=== PATIENT | male | born 1935 | race African-American/Black ===

== ENCOUNTER 2016-07-04 03:17 | Inpatient (IN) | payer OTHER ==
--- NOTE | ~2016-07-04 | A ---
[facility] Nutrition Therapy DATE: 07/04/16 Patient: PARMINDER MODI Physician: [place] Address: [address] [place] [address] Room/Bed: [address] [place] [address], Zip: [place] [address] Admit Date: 07/04/16 Date of : 35 Height: 5 7 Weight: 174 79.37 NUTRITIONAL ASSESSMENT: REASON: CONSULT RE: DM EDUCATION PT IS 81 Y.O. MALE ADMITTED FOR HYPOGLYCEMIA, CASEY HT: 5'7", WT: 175# (80 KG), BMI: 27.4 RD ATTEMPTED TO PROVIDE VERBAL AND WRITTEN CC DIET EDUCATION. PT ASLEEP AT TIME OF VISIT-PT DID NOT WAKE TO VERBAL CUES. RD LEFT WRITTEN CC DIET EDUCATION AT BEDSIDE. RD TO REMAIN AVAILABLE. RD WILL F/U PER PROTOCOL Respectfully, JOSHUA HOLLIDAY MS, RD, LD Food and Nutritional Services [facility] cc: client file
--- NOTE | ~2016-07-04 | DS ---
Unit #: [id number] #: [id number] Patient: PARMINDER MODI [id number] [address] [place], [place] [address] [id number] I MR#: [id number] NAME: PARMINDER MODI ROOM: 55 Age: 81 Sex: M Admission Date: 07/04/2016 : 1935 Discharge Date: 07/05/2016 Attending Physician: Issac Hidalgo M.D. Primary Care Physician: No Primary Care Physician DISCHARGE SUMMARY PRIMARY DIAGNOSIS Hypoglycemia. SECONDARY DIAGNOSES 1. Dehydration with hypernatremia. 2. Urinary tract infection. 3. Acute kidney injury. 4. Severe dementia. 5. History of stroke. 6. 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 7. Glaucoma. 8. Hypertension. HOSPITAL COURSE The patient was admitted to the hospital and started on D5 water with good improvement in his issues. His creatinine came down from 1.6 down to 1.3, which is his baseline. His sodium level came down from 150 to 133. His blood sugars were running in the 200s for over 12 hours prior to discharge. His urine culture is still pending, but based on previous urine cultures and his improved creatinine, he would likely respond to 7 days of nitrofurantoin. I will place him on this and have him follow up with [facility] in 1 week. The primary issue with the patient appears to be that he became excessively dehydrated. The reports that, due to his polyuria, she may have limited his fluids, and I counselled her on aggressive hydration daily with her . He is incontinent of urine, so has frequent diaper changes, which is somewhat difficult on the family. Overall, his hemoglobin A1C is 8.8%, and obviously, holding back on his insulin and (1) his diabetes, would only make him more likely to get dehydrated, so I think pulling back on his insulin is not the recommended therapy at this time. Per his , he has never had issues with hypoglycemia previously, and it appears in this case that the main reason that he developed hypoglycemia was due to worsening kidney function with dehydration with his home doses of insulin. Additionally, he is on a somewhat unusual insulin regimen at home. He is on 75/25 insulin, which he takes 3 times a day with meals. Ultimately, I will leave it up to [facility] to discuss possible changes in the type and frequency of his insulin regimen. Consideration could be made for changing his 75/25 to twice a day or possibly going to a 3-udtq-r-day regimen with Lantus and NovoLog aspart. If the family were careful while doing such a regimen, it would probably lead to a lower risk of hypoglycemia, as well as a better control of his insulin, but it is unclear whether that would be able to occur. Unit #: [id number] #: [id number] Patient: PARMINDER MODI Ultimately, due to the patient's severe dementia, his quality of life is poor, and his life expectancy is quite limited regardless. DISCHARGE DISPOSITION To home. DISCHARGE STATUS Stable. DISCHARGE ACTIVITY With assistance only. DISCHARGE DIET Diabetic dysphagia diet with thickened liquids, which was his previous home diet. DISCHARGE FOLLOW-UP With [facility] in 1 week. SPECIAL INSTRUCTIONS The patient is to get 4-5 glasses of fluid per day minimum. DISCHARGE MEDICATIONS 1. Humalog 75/25 - 35 units with breakfast, 30 units with lunch and 30 units with supper. 2. Flomax 0.4 mg daily. 3. Aricept 10 mg p.o. daily. 4. Zoloft 50 mg p.o. daily. 5. Losartan 100 mg p.o. daily. 6. Norvasc 10 mg p.o. daily. 7. Aspirin 81 mg p.o. daily. 8. Timolol eyedrops 1 drop both eyes b.i.d. 9. Prednisolone eyedrops 1 drop both eyes b.i.d. 10. Potassium chloride 20 mEq p.o. b.i.d. Dictated by... Adriel Tierney M.D. CANELO/gerald TD: 07/07/2016 07:39 JOB #: [id number] DISCHARGE SUMMARY X Adriel Tierney MD X DISCHARGE SUMMARY
--- NOTE | ~2016-07-04 | HP ---
Unit #: [id number] #: [id number] Patient: PARMINDER MODI [id number] [address] [address] [id number] I MR#: [id number] NAME: PARMINDER MODI ROOM: 55 Age: 81 Sex: M Admission Date: 07/04/2016 : 1935 Attending Physician: Lindsay Alfaro M.D. Primary Care Physician: No Primary Care Physician HISTORY AND PHYSICAL CHIEF COMPLAINT Hypoglycemia, acute kidney injury with hypernatremia. HISTORY This pleasant 81-year-old male with dementia, IDDM, glaucoma, is admitted for hypoglycemia. Patient takes unknown amount of Humalog mix 75/25. I believe his sugar was high yesterday and his administered insulin. He became increasingly lethargic and unarousable late last evening. EMS was called and the patient's Accu-Chek was found to be 22. He was brought to this emergency department where he was given an amp of D50. His Accu-Chek improved. However, afterwards his Accu-Chek was 66. He was given another half amp of D50 and currently is receiving D5W at 125 mL an hour. PAST MEDICAL HISTORY 1. Prior CVA with right-sided weakness, memory issues, expressive aphasia, and dysphagia. 2. Glaucoma. 3. Admission 04/2016 for ESBL UTI and sepsis. 4. Blind left eye. 5. Dementia. 6. Essential hypertension. 7. BPH. 8. Remote DVT 1999 during the time the patient had a CVA. Family believes he underwent an IVC filter. ALLERGIES No known drug allergies. HOME MEDICATIONS 1. Humalog 75/25 mix, possibly versus Lantus. I am unsure at this time. 2. Flomax 0.4 mg daily. 3. Aricept 10 mg daily. 4. Zoloft 50 mg daily. 5. Losartan 100 mg daily. 6. Norvasc 10 mg daily. 7. Aspirin 81 mg daily. 8. Timolol 1 drop OU b.i.d. 9. Prednisolone 1 drop OU b.i.d. FAMILY HISTORY Noncontributory given patient's age. Unit #: [id number] #: [id number] Patient: PARMINDER MODI SOCIAL HISTORY The patient lives with his . He is essentially a lifelong nonsmoker and does not drink alcohol. REVIEW OF SYSTEMS Impossible to obtain due to confusion. PHYSICAL EXAMINATION GENERAL: Pleasantly confused 81-year-old male currently in no acute distress. VITAL SIGNS: Temperature 95.5, pulse 66, respirations 16, blood pressure 138/78, O2 saturation is 96% on room air. HEENT: Notable for clouding of the left cornea. Pharynx is benign. NECK: Supple without adenopathy or thyromegaly. CHEST: Clear on patient's supine exam. CARDIAC: Normal S1 and S2 without murmur. ABDOMEN: Bowel sounds are present. No hepatosplenomegaly, tenderness or masses. EXTREMITIES: Without edema. Pedal pulses are diminished. No ulcers on the feet. NEUROLOGIC: Patient is somnolent but easily arousable. He is blind in left eye. He has a slight right lower facial droop. He is oriented only to person. He is week on the right side as compared to the left. DIAGNOSTIC STUDIES ADMISSION LABS: Hematocrit is 35.2, which is stable. Normal white count and platelet count and MCV. SMA 12 - glucose 27, BUN 25, creatinine 1.6, up from a BUN of 30, creatinine 1.4 05/16/2016, sodium 150, potassium 3.3, chloride 118, lactic acid normal. Cardiac markers are negative. Urinalysis - positive leukocyte esterase, 2+ protein with 5-10 red cells, 10-25 white cells, no bacteria noted. IMAGING STUDIES: Chest x-ray - cardiomegaly. Head CT - stable, no acute disease. CARDIOLOGY STUDIES: EKG - sinus bradycardia rate 46, nonspecific ST wave abnormalities noted. ASSESSMENT 1. IDDM with hypoglycemia. 2. Acute and chronic kidney disease, probably related to dehydration with hypernatremia. 3. Questionable UTI. Patient was recently admitted for ESBL sepsis. 4. 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 5. Prior CVA with dysphagia, right-sided weakness and dementia. 6. Hypertension. 7. Glaucoma. Patient is blind left eye. PLANS 1. Hypotonic IV fluids with D5W. 2. Frequent Accu-Cheks, obtain hemoglobin A1c, and hold insulin. 3. Meropenem and Florastor pending urine cultures. 4. If urine cultures are negative would discontinue antibiotics. 5. DVT prophylaxis. Unit #: [id number] #: [id number] Patient: PARMINDER MOID Dictated by Lindsay Alfaro M.D. AML/ts TD: 07/04/2016 06:49 JOB #: [id number] CC: Elias Solorzano HISTORY AND PHYSICAL X Lindsay Alfaro MD HISTORY AND PHYSICAL
--- NOTE | ~2016-07-04 | CR72 ---
[facility] A Service of [facility] & [facility] RADIOLOGY TEXT RESULTS PATIENT: PARMINDER OMDI LOCATION: [facility] 55- : 35 UNIT #: [id number] AGE: [address]: Issac Hidalgo MD SEX: M ORDER DR: [id number] [facility] [address] [place], [place] [address] [id number] I MR#: [id number] Acc #: [id number] NAME: PARMINDER MODI : 1935 SEX: M STUDY DATE/TIME: 07/04/2016 0300 UNIT: [facility] ROOM: [facility] STUDY DESCRIPTION: CR Chest Single View Portable Attending Physician: Issac Hidalgo M.D. Ordering Physician: Sully Thao M.D. Primary Care Physician: No Primary Care Physician MEDICAL IMAGING REPORT This report is preliminary unless electronic signature is present EXAM Portable chest, 07/04 at 0300 INDICATION Patient brought in by EMS today with hypoglycemia. History of hypertension. FINDINGS AP portable chest compared with 05/11/2016. Heart is enlarged. Lung volumes are low, but the lungs are clear. No pneumothorax. IMPRESSION Cardiomegaly with low-volume inspiration. No acute findings in the chest. Dictated by... Joaquin Guzman Jr., M.D. THIS IS AN ELECTRONICALLY VERIFIED REPORT Joaquin Guzman Jr., M.D. at 07/04/2016 12:40 PM KAMARI/katya TD: 07/04/2016 09:49 JOB #: [id number] MEDICAL IMAGING REPORT COPY
--- NOTE | ~2016-07-04 | EKG ---
PATIENT: PARMINDER MODI UNIT #: [id number] Ventricular Rate: 46 BPM Atrial Rate: 46 BPM P-R Interval: 182 ms QRS Duration: 90 ms Q-T Interval: 564 ms QTC Calculation(Bezet): 493 ms P [place]: 52 degrees Calculated T [place]: -54 degrees Diagnosis Line: Sinus bradycardia Diagnosis Line: T wave abnormality, consider anterior ischemia Diagnosis Line: Prolonged QT Diagnosis Line: Abnormal ECG Diagnosis Line: No previous ECGs available Diagnosis Line: Confirmed by VALE MCARTHUR MD ([id number]) on Diagnosis Line: 07/06/2016 11:56:40 PM INTERPRETING MD: LYUBOV PAULION
--- NOTE | ~2016-07-04 | CT71 ---
[facility] A Service of [facility] & [facility] RADIOLOGY TEXT RESULTS PATIENT: PARMINDER MODI LOCATION: [facility] 55- : 35 UNIT #: [id number] AGE: [address]: Issac Hidalgo MD SEX: M ORDER DR: [id number] [facility] [address] [place], [place] [address] [id number] I MR#: [id number] Acc #: [id number] NAME: PARMINDER MODI : 1935 SEX: M STUDY DATE/TIME: 07/04/2016 04:14 UNIT: [facility] ROOM: [facility] STUDY DESCRIPTION: CT Head Wo Contrast Attending Physician: Issac Hidalgo M.D. Ordering Physician: Sully Thao M.D. Primary Care Physician: Primary Care Physician No MEDICAL IMAGING REPORT This report is preliminary unless electronic signature is present EXAM Head CT 07/04 at 04:14 INDICATIONS Confusion for 1 day. Mental status changes and hypoglycemia. This CT exam was performed with one or more of the following radiation dose reduction techniques: automatic exposure control, adjustment of mA and/or kV according to patient size, and iterative reconstruction. FINDINGS Axial images were obtained from base to the vertex without contrast. Comparison is made with 05/11/2016. Again seen is generalized atrophy. Ventricular size and configuration are stable. There is ex vacuo dilatation of the left lateral ventricle due to an old left MCA infarct. Advanced chronic small vessel ischemic changes are present in the white matter. Atherosclerotic calcifications are present in the left vertebral artery in both carotid siphons. There are postoperative changes in the right globe. No acute infarct or hemorrhage is seen. There are no masses. No skull fracture. IMPRESSION No acute abnormalities. Stable exam from 05/11/2016. Dictated by... Joaquin Guzman Jr., M.D. THIS IS AN ELECTRONICALLY VERIFIED REPORT Joaquin Guzman Jr., M.D. at 07/04/2016 12:40 PM KAMARI/matthew TD: 07/04/2016 09:54 [facility] A Service of [facility] & [facility] RADIOLOGY TEXT RESULTS PATIENT: PARMINDER MODI LOCATION: [place] [address]01 : 35 UNIT #: [id number] AGE: [address]: Issac Hidalgo MD SEX: M ORDER DR: JOB #: [id number] MEDICAL IMAGING REPORT COPY
[2016-07-04 03:07] LABS: BASOPHIL# 0.1 X10e3 (0-0.3); BASOPHIL% 1.3 % (0-2.5); EOSINOPHIL# 0.2 X10e3 (0-0.7); EOSINOPHIL% 2.1 % (0.0-7.0); HEMATOCRIT 35.2 % (38.0-50.0); HEMOGLOBIN 11.3 gm/dL (13.0-16.0); LYMPHOCYTE% 23.9 % (17.0-45.0); MEAN CELL VOLUME 83.2 FL (83-96); MEAN CORPUSCULAR HEMOGLOBIN 26.8 PG (28-34); MEAN CORPUSCULAR HGB CONC 32.2 g/dL (30-36); MEAN PLATELET VOLUME 7.7 FL (6.5-11.5); MONOCYTE# 0.5 X10e3 (0-1.0); NEUTROPHIL# 5.5 X10e3 (1.5-7.1); NEUTROPHIL% 66.7 % (40-75); PLATELET COUNT 282 X10e3 (140-420); RED BLOOD COUNT 4.24 X10e (3.90-5.60); RED CELL DISTRIBUTION WIDTH 15.9 % (11.0-15.5); WHITE BLOOD COUNT 8.3 X10e3 (4.0-10.5)
[2016-07-04 03:09] LABS: DIFF IND NO
[~2016-07-04 03:17] MED LIST: ARICEPT PO; ASPIRIN EC81 M1 PO; COUMADIN; COUMADIN5 MG PO; COZAAR100 MG PO; DONEPEZIL HCL10 MG PO; FLOMAX0.4 M1 PO; HUMULIN 70/30 V10 ML; LANTUS100 U/ML SUBQ; LISINOPRIL; LISINOPRIL10 MG PO; LOPID600 MG PO; METFORMIN; METFORMIN HCL500 M1 PO; NORVASC; NORVASC10 MG PO; NOVOLIN R100 U/ML; SERTRALINE HCL50 M1 PO; TRAVATAN5 ML; TRAVATAN5 ML OU; TRUSOPT5 ML; TRUSOPT5 ML OU; VASOCIDIN O5 ML OPTH OU
[2016-07-04 03:23] LABS: POC - CKMB 1.2 ng/mL (0.0-7.9); POC - TROPONIN <0.05 ng/mL (<=0.05)
[2016-07-04 03:24] LABS: URINE SOURCE CLEAN CATCH
[2016-07-04 03:29] LABS: URINE APPEARANCE CLEAR; URINE BILIRUBIN NEG (NEG); URINE BLOOD TRACE (NEG); URINE COLOR YELLOW; URINE GLUCOSE NEG (NEG); URINE KETONE NEG (NEG); URINE LEUKOCYTE ESTERASE 1+ (NEG); URINE NITRATE NEG (NEG); URINE PROTEIN 2+ (NEG); URINE SPECIFIC GRAVITY 1.016 (1.003-1.035)
[2016-07-04 03:32] LABS: CULTURE INDICATED? YES; URINE BACTERIA AUWI NEG (NEGATIVE); URINE SQUAMOUS EPITHELIAL CELL OCC /[HPF]
[2016-07-04 03:37] LABS: ALBUMIN SERUM 3.8 g/dL (3.5-5.0); BILIRUBIN, DIRECT 0.1 mg/dL (0.0-0.2); BILIRUBIN,INDIRECT 0.3 mg/dL (0.0-0.9); BILIRUBIN,TOTAL 0.4 mg/dL (0.2-2.0); BUN/CREATININE RATIO 15.62; CALCIUM SERUM 8.9 mg/dL (8.4-10.2); CREATININE SERUM 1.6 mg/dL (0.6-1.4); GLOM FILT RATE Estimated 53.6 mL/min (>60); POTASSIUM 3.3 mmol/L (3.5-5.1)
[2016-07-04 05:07] LABS: POC - CKMB 1.4 ng/mL (0.0-7.9); POC - TROPONIN <0.05 ng/mL (<=0.05)
[2016-07-04 12:23] LABS: BASOPHIL% 0.3 % (0-2.5); EOSINOPHIL# 0.1 X10e3 (0-0.7); EOSINOPHIL% 1.2 % (0.0-7.0); HEMATOCRIT 35.2 % (38.0-50.0); HEMOGLOBIN 11.3 gm/dL (13.0-16.0); LYMPHOCYTE# 2.2 X10e3 (1.0-3.5); LYMPHOCYTE% 24.8 % (17.0-45.0); MEAN CELL VOLUME 82.9 FL (83-96); MEAN CORPUSCULAR HEMOGLOBIN 26.7 PG (28-34); MEAN CORPUSCULAR HGB CONC 32.2 g/dL (30-36); MEAN PLATELET VOLUME 7.5 FL (6.5-11.5); MONOCYTE# 0.5 X10e3 (0-1.0); NEUTROPHIL# 5.9 X10e3 (1.5-7.1); NEUTROPHIL% 67.7 % (40-75); PLATELET COUNT 301 X10e3 (140-420); RED BLOOD COUNT 4.25 X10e (3.90-5.60); RED CELL DISTRIBUTION WIDTH 16.7 % (11.0-15.5); WHITE BLOOD COUNT 8.7 X10e3 (4.0-10.5)
[2016-07-04 12:29] LABS: DIFF IND YES
[2016-07-04 12:51] LABS: BLOOD UREA NITROGEN 20 mg/dL (9-23); BUN/CREATININE RATIO 14.28; CALCIUM SERUM 8.7 mg/dL (8.4-10.2); CARBON DIOXIDE 24 mmol/L (22-31); CHLORIDE 111 mmol/L (100-111); CREATININE SERUM 1.4 mg/dL (0.6-1.4); GLOM FILT RATE Estimated ABOVE60 mL/min (>60); GLUCOSE FASTING 205 mg/dL (70-110); POTASSIUM 3.5 mmol/L (3.5-5.1); SODIUM 143 mmol/L (135-145)
[2016-07-04 13:09] LABS: PLATELET ESTIMATE NORMAL (NORMAL)
[2016-07-04 13:10] LABS: ANISOCYTOSIS SL
[2016-07-04 13:17] LABS: %MB 3.2 % (0.0-4.0)
[2016-07-05 05:14] LABS: HEMOGLOBIN 11.3 gm/dL (13.0-16.0); MEAN CELL VOLUME 82.7 FL (83-96); MEAN CORPUSCULAR HEMOGLOBIN 26.7 PG (28-34); MEAN CORPUSCULAR HGB CONC 32.3 g/dL (30-36); MEAN PLATELET VOLUME 8.1 FL (6.5-11.5); RED BLOOD COUNT 4.24 X10e (3.90-5.60); RED CELL DISTRIBUTION WIDTH 16.1 % (11.0-15.5); WHITE BLOOD COUNT 8.7 X10e3 (4.0-10.5)
[2016-07-05 08:49] LABS: BLOOD UREA NITROGEN 12 mg/dL (9-23); BUN/CREATININE RATIO 9.23; CARBON DIOXIDE 25 mmol/L (22-31); CHLORIDE 101 mmol/L (100-111); CREATININE SERUM 1.3 mg/dL (0.6-1.4); GLOM FILT RATE Estimated ABOVE60 mL/min (>60); GLUCOSE FASTING 261 mg/dL (70-110); SODIUM 133 mmol/L (135-145)
[2016-07-05] MEDS ORDERED: PREDNISOLONE SO10 ML OU (10:19)
[2016-07-05] MEDS ORDERED: MACROBID100 MG PO (10:20)
[2016-07-05] MEDS ORDERED: KCL PO (10:21)
== END 2016-07-05 12:06 | disposition home or self-care (01) | DRG 638 ==
LOC: CED 03:17 → CEDOF 05:40 → C5B 06:24
PROVIDERS: Emergency Medicine; Internal Medicine
DX: E11.649 Type 2 diabetes mellitus with hypoglycemia without coma (principal); N39.0 Urinary tract infection, site not specified; N17.9 Acute kidney failure, unspecified; E87.0 Hyperosmolality and hypernatremia; I69.351 Hemiplegia and hemiparesis following cerebral infarction affecting right dominant side; E86.0 Dehydration; F03.90 Unspecified dementia, unspecified severity, without behavioral disturbance, psychotic disturbance, mood disturbance, and anxiety; I69.320 Aphasia following cerebral infarction; I69.391 Dysphagia following cerebral infarction; R13.10 Dysphagia, unspecified; H40.9 Unspecified glaucoma; H54.42 Blindness, left eye, normal vision right eye; Z86.718 Personal history of other venous thrombosis and embolism; Z79.01 Long term (current) use of anticoagulants; Z79.4 Long term (current) use of insulin
CPT/HCPCS: 36415; 70450; 71010; 80048; 80076; 81003; 82550; 82553; 82947; 83036; 83605; 83735; 84484; 85025; 85027; 87086; 93005; 96365; 96375; 96376; 99285; J0696; J1650; J1815; J2185

== ENCOUNTER 2016-08-02 20:35 | Inpatient (IN) | payer OTHER ==
--- NOTE | ~2016-08-02 | CT71 ---
[facility] A Service of [facility] RADIOLOGY TEXT RESULTS PATIENT: PARMINDER MODI LOCATION: [facility] 342-01 : 35 UNIT #: [id number] AGE: [address]: Rodrick Phillips MD SEX: M ORDER DR: [id number] [facility] [address] [place], [place] [address] [id number] I MR#: [id number] Acc #: [id number] NAME: PARMINDER MODI : 1935 SEX: M STUDY DATE/TIME: 08/02/2016 20:28 UNIT: [facility] ROOM: [address]35[address] STUDY DESCRIPTION: CT Head Wo Contrast Attending Physician: Katie Cotter M.D. Ordering Physician: Son Lemos M.D. Primary Care Physician: No Primary Care Physician MEDICAL IMAGING REPORT This report is preliminary unless electronic signature is present EXAM Head CT without contrast. DATE OF EXAM 08/02/2016 HISTORY Low blood sugar and altered mental status today. Patient found unresponsive 2 hours ago. No known trauma to head, hypertension, diabetes. TECHNIQUE NOTE: This CT exam was performed with one or more of the following radiation dose reduction techniques: automatic exposure control, adjustment of mA and/or kV according to patient size, and iterative reconstruction. FINDINGS Multiple axial images were obtained from the skull base to vertex without intravenous contrast administration. There is generalized enlargement of the ventricles and sulci characteristic of atrophy and there is periventricular microvascular white matter ischemic change. Old left middle cerebral artery infarct is noted with ex vacuo dilatation of the left frontal horn unchanged compared with 07/04/2016. There is no midline shift. There is no mass or mass effect, hemorrhage or acute infarct. IMPRESSION Atrophy and chronic ischemic change. Old infarct left middle cerebral artery distribution. No acute intracranial abnormality. Dictated by... Ashish Lehman M.D. [facility] A Service of [facility] RADIOLOGY TEXT RESULTS PATIENT: PARMINDER MODI LOCATION: [facility] 342-01 : 35 UNIT #: [id number] AGE: [address]: Rodrick Phillips MD SEX: M ORDER DR: THIS IS AN ELECTRONICALLY VERIFIED REPORT Ashish Lehman M.D. at 08/03/2016 1:14 PM TRINITY/david TD: 08/02/2016 23:37 JOB #: [id number] MEDICAL IMAGING REPORT Page 1 of 1 COPY
--- NOTE | ~2016-08-02 | CR72 ---
[facility] A Service of [facility] & [facility] RADIOLOGY TEXT RESULTS PATIENT: PARMINDER MODI LOCATION: [facility] 342-01 : 35 UNIT #: [id number] AGE: [address]: Rodrick Phillips MD SEX: M ORDER DR: [id number] [facility] [address] [place], [place] [address] [id number] I MR#: [id number] Acc #: [id number] NAME: PARMINDER MODI : 1935 SEX: M STUDY DATE/TIME: 08/02/2016 19:58 UNIT: [facility] ROOM: [address] STUDY DESCRIPTION: CR Chest Single View Portable Attending Physician: Katie Cotter M.D. Ordering Physician: Son Lemos M.D. Primary Care Physician: No Primary Care Physician MEDICAL IMAGING REPORT This report is preliminary unless electronic signature is present EXAM Portable chest 08/02/2016 HISTORY Congestive heart failure, shortness of breath bradycardia decreased breath sounds. Patient unresponsive tonight chest congestion and cough. Benign essential hypertension FINDINGS The cardiac and mediastinal structures are stable compared with 07/04/2016. There is poor inspiratory result with atelectasis at the right lung base and elevation of the right hemidiaphragm. Lungs are otherwise clear. There are no pleural effusions. IMPRESSION No active pulmonary disease Dictated by... Ashish Lehman M.D. THIS IS AN ELECTRONICALLY VERIFIED REPORT Ashish Lehman M.D. at 08/03/2016 1:14 PM KRT/nadiya TD: 08/02/2016 23:37 JOB #: [id number] MEDICAL IMAGING REPORT Page 1 of 1 COPY
--- NOTE | ~2016-08-02 | DS ---
Unit #: [id number] #: [id number] Patient: PARMINDER MODI [id number] [address] [address] [id number] I MR#: [id number] NAME: PARMINDER MODI ROOM: 342 Age: 81 Sex: M Admission Date: 08/02/2016 : 1935 Discharge Date: Attending Physician: Heidy Garber M.D. DISCHARGE SUMMARY DISCHARGE DIAGNOSES 1. Acute kidney injury. 2. Urinary tract infection, cultures negative. 3. Hypoglycemia. 4. Diabetes mellitus type 2, insulin dependent. 5. Toxic metabolic encephalopathy most likely from hypoglycemia. 6. History of cerebrovascular accident with right side weakness. 7. History of glaucoma with blindness in the left eye. 8. Hypertension, uncontrolled. 9. History of severe dementia, likely vascular. 10. Benign prostatic hypertrophy. 11. Dehydration. CONSULTATIONS None. PROCEDURES None. DIAGNOSTIC STUDIES LABORATORY: Glucose 270, sodium 140, potassium 4.4, and creatinine 1.4. WBC 9.3, hemoglobin 10.2, and platelets 230,000. Urine culture negative. ALLERGIES None. DISCHARGE MEDICATIONS 1. Flomax 0.4 p.o. daily. 2. Zoloft 50 daily. 3. Norvasc 10 daily. 4. Donepezil 10 mg p.o. daily. 5. Hydralazine 25 p.o. b.i.d. 6. Aspirin 81 daily. 7. NovoLog low-dose sliding scale. HOSPITAL COURSE An 81-year-old admitted because of change in mental status. Acute kidney injury, most likely prerenal and dehydration. Patient received IV fluids. Currently resolved. Urinary tract infection. Cultures are negative. Patient received Rocephin and completed the course. Unit #: [id number] #: [id number] Patient: PARMINDER MODI Toxic metabolic encephalopathy secondary to hypoglycemia. Currently, sugars are stable. He is back to baseline according to son. He will go to rehab and continue with supportive care there. Dehydration. Patient received IV fluids. Currently tolerating diet okay. Diabetes mellitus type 2 uncontrolled with hypoglycemia. His insulin has been discontinued. Continue with sliding scale for now. Hypertension, uncontrolled. Hydralazine added. DISPOSITION Discharge to rehab. Dictated by... Elias Butler TD: 08/07/2016 14:27 JOB #: [id number] DISCHARGE SUMMARY Page 1 of 1 X Heidy Garber MD X DISCHARGE SUMMARY
--- NOTE | ~2016-08-02 | EKG ---
PATIENT: PARMINDER MODI UNIT #: [id number] Ventricular Rate: 60 BPM Atrial Rate: 60 BPM P-R Interval: 160 ms QRS Duration: 90 ms Q-T Interval: 526 ms QTC Calculation(Bezet): 526 ms P [place]: 41 degrees Calculated R [place]: 9 degrees Calculated T [place]: 51 degrees Diagnosis Line: Normal sinus rhythm Diagnosis Line: Nonspecific T wave abnormality Diagnosis Line: Abnormal ECG Diagnosis Line: When compared with ECG of 04-JUL-2016 03:08, Diagnosis Line: Non-specific change in ST segment in Anterior Diagnosis Line: leads Diagnosis Line: T wave inversion no longer evident in Anterior Diagnosis Line: leads Diagnosis Line: Confirmed by SKYE GARCIA MD ([id number]) on 08/03/2016 Diagnosis Line: 4:39:58 PM INTERPRETING MD: RADHA PAULINO
--- NOTE | ~2016-08-02 | HP ---
Unit #: [id number] #: [id number] Patient: PARMINDER MODI [id number] [address] [place], [place] [address] [id number] MR#: [id number] NAME: PARMINDER MODI ROOM: 342 Age: 81 Sex: M Admission Date: 08/02/2016 : 1935 Attending Physician: Rodrick Phillips M.D. Primary Care Physician: No Primary Care Physician HISTORY AND PHYSICAL CHIEF COMPLAINT Change in mental status, hypoglycemia. HISTORY OF PRESENT ILLNESS This is an 81-year-old gentleman who has a past medical history of insulin dependent diabetes, glaucoma, legally blind left eye, history of CVA with right-sided hemiparesis, (1) , dysphagia, hypertension, dementia, benign prostatic hypertrophy. As per family he was at home. He became all of the sudden sweaty. He took 70/30 25 units of insulin and then became all of the sudden sweaty, clammy, sweating and then EMS was called. He was found to have low sugar. He was given D50 and brought to the emergency room. Here he was found to have again sugar less than 140 and was given another episode of D50 and eventually workup showed increased creatinine of 1.8 and he was admitted for hypoglycemia. He was also found to have a urinary tract infection on urinalysis. Otherwise he is stable at this time. He is alert and oriented times one. He denies any complaint. No chest pain. No nausea. No vomiting. No fever. No chills. PAST MEDICAL HISTORY 1. History of severe CVA with right-sided weakness. Memory issues. Aphagia and dysphagia. 2. History of glaucoma with blindness in the left eye. 3. History of vascular dementia. 4. Hypertension. 5. Benign prostatic hypertrophy. 6. History of remote DVT in 2007, probably had IVC filter at that time. 7. History of insulin dependent diabetes. SOCIAL HISTORY The patient lives with his . He does not smoke. Does not drink alcohol. FAMILY HISTORY Noncontributory given the patient's age. ALLERGIES No known drug allergies. HOME MEDICATIONS (From last discharge) 1. Humalog 75/35, 35 units with breakfast, 30 units with lunch, 30 units with supper. 2. Flomax 0.4 mg daily. 3. Aricept 10 mg daily. 4. Zoloft 50 mg daily. Unit #: [id number] #: [id number] Patient: PARMINDER MODI 5. Losartan 100 mg daily. 6. Norvasc 10 mg daily. 7. Aspirin 81 mg daily. 8. Timolol eyedrops b.i.d. 9. Prednisone eyedrops b.i.d. 10. Potassium chloride 20 mEq b.i.d. REVIEW OF SYSTEMS Negative except as per history of present illness. PHYSICAL EXAMINATION GENERAL: Elderly man lying in the bed comfortably. Currently not in any distress. He is alert, awake and oriented times one. VITALS: Currently, temperature 96.5, heart rate 69, respiratory rate 16, blood pressure 134/79. HEENT: Notable for clouding of the left cornea. Pharynx is benign. Head is atraumatic and normocephalic. NECK: Supple. No jugular venous distension. No thyromegaly. LUNGS: Clear to auscultation. No rhonchi. No wheezing. HEART: S1 and S2. Regular rate and rhythm. ABDOMEN: Soft, nontender and nondistended. Bowel sounds positive. EXTREMITIES: Inspection normal. No cyanosis, clubbing or edema. NEUROLOGIC: He is blind in the left eye. He has right-sided chronic weakness. Cranial nerves II through XII intact. DIAGNOSTIC STUDIES IMAGING: Chest x-ray negative. CT head shows old infarct left middle cerebral artery distribution. LABORATORY: Urinalysis, glucose 100, WBCS 25-50. Repeat glucose 95. Sodium 138, potassium 3.4, chloride 100, glucose 160, BUN 20, creatinine 1.8. LFTs within normal limits. Alcohol less than 5. Lactic acid 1.7. Ammonia level is 21. INR 1. CBC, white count 6, hemoglobin 11, hematocrit 35, platelets 192. ASSESSMENT/PLAN 1. Change in mental status secondary to hypoglycemia. 2. Hypoglycemia with insulin dependent diabetes. Will place on Accu-Cheks morning and evening. Hold insulin. 3. Urinary tract infection. Start the patient on IV Rocephin. 4. Acute kidney injury. IV fluids and reevaluate in the morning. 5. History of insulin dependent diabetes. 6. History of CVA with right-sided weakness. Has aphasia. 7. History of glaucoma with blindness left eye. 8. Hypertension. 9. History of dementia, likely vascular. 10. Benign prostatic hypertrophy. 11. DVT prophylaxis. Will place the patient on Lovenox. Dictated by Katie Cotter M.D. DONTRELL/leif TD: 08/03/2016 06:44 JOB #: [id number] Unit #: [id number] #: [id number] Patient: PARMINDER MODI HISTORY AND PHYSICAL Page 1 of 1 X X HISTORY AND PHYSICAL
[2016-08-02 20:21] LABS: BASOPHIL# 0.1 X10e3 (0-0.3); BASOPHIL% 0.9 % (0-2.5); EOSINOPHIL# 0.2 X10e3 (0-0.7); EOSINOPHIL% 2.6 % (0.0-7.0); HEMATOCRIT 35.3 % (38.0-50.0); HEMOGLOBIN 11.2 gm/dL (13.0-16.0); LYMPHOCYTE# 1.4 X10e3 (1.0-3.5); LYMPHOCYTE% 22.9 % (17.0-45.0); MEAN CELL VOLUME 83.7 FL (83-96); MEAN CORPUSCULAR HEMOGLOBIN 26.6 PG (28-34); MEAN CORPUSCULAR HGB CONC 31.8 g/dL (30-36); MEAN PLATELET VOLUME 8.7 FL (6.5-11.5); MONOCYTE# 0.3 X10e3 (0-1.0); MONOCYTE% 5.1 % (3.0-12.0); NEUTROPHIL# 4.1 X10e3 (1.5-7.1); NEUTROPHIL% 68.5 % (40-75); PLATELET COUNT 192 X10e3 (140-420); RED BLOOD COUNT 4.22 X10e (3.90-5.60); RED CELL DISTRIBUTION WIDTH 16.4 % (11.0-15.5)
[2016-08-02 20:23] LABS: DIFF IND NO
[2016-08-02 20:34] LABS: URINE SOURCE CLEAN CATCH
[~2016-08-02 20:35] MED LIST changes: +KCL PO; +MACROBID100 MG PO; +PREDNISOLONE SO10 ML OU
[2016-08-02 20:37] LABS: PROTHROMBIN TIME (PATIENT) 10.7 SECONDS (9.6-11.5)
[2016-08-02 20:39] LABS: URINE APPEARANCE CLEAR; URINE BILIRUBIN NEG (NEG); URINE BLOOD TRACE (NEG); URINE COLOR YELLOW; URINE GLUCOSE 100 MG/DL (NEG); URINE KETONE NEG (NEG); URINE LEUKOCYTE ESTERASE TRACE (NEG); URINE NITRATE NEG (NEG); URINE PH 5.5 (5-8); URINE PROTEIN 1+ (NEG); URINE SPECIFIC GRAVITY 1.013 (1.003-1.035); URINE UROBILINOGEN 0.2 MG/DL (NEG)
[2016-08-02 20:43] LABS: CULTURE INDICATED? YES; URBCS1 AUWI 0-2 /[HPF] (0-2); URINE BACTERIA AUWI NEG (NEGATIVE); URINE SQUAMOUS EPITHELIAL CELL NONE SEEN /[HPF]; UWBCS1 AUWI 25-50 (0-5)
[2016-08-02 20:43] LABS: ALBUMIN SERUM 3.7 g/dL (3.5-5.0); ALCOHOL BLOOD <5 mg/dL (0); ALKALINE PHOSPHATASE 45 U/L (32-92); ALT (SGPT) 24 U/L (10-40); AST (SGOT) 18 U/L (10-42); BILIRUBIN, DIRECT 0.1 mg/dL (0.0-0.2); BILIRUBIN,INDIRECT 0.6 mg/dL (0.0-0.9); BILIRUBIN,TOTAL 0.7 mg/dL (0.2-2.0); BLOOD UREA NITROGEN 20 mg/dL (9-23); BUN/CREATININE RATIO 11.11; CALCIUM SERUM 8.2 mg/dL (8.4-10.2); CARBON DIOXIDE 22 mmol/L (22-31); CHLORIDE 108 mmol/L (100-111); CREATININE SERUM 1.8 mg/dL (0.6-1.4); GLUCOSE FASTING 160 mg/dL (70-110); POTASSIUM 3.4 mmol/L (3.5-5.1); PROTEIN TOTAL SERUM 7.4 g/dL (6.0-8.3); SODIUM 138 mmol/L (135-145)
[2016-08-02] MEDS ORDERED: NOVOLOG100 UNITS/ SUBQ (21:09)
[2016-08-02] MEDS ORDERED: ZOLOFT50 MG PO (21:09)
[2016-08-02] MEDS ORDERED: DONEPEZIL HCL10 MG PO (21:09)
[2016-08-03 06:04] LABS: BASOPHIL% 0.4 % (0-2.5); EOSINOPHIL% 0.2 % (0.0-7.0); HEMATOCRIT 35.7 % (38.0-50.0); HEMOGLOBIN 11.3 gm/dL (13.0-16.0); LYMPHOCYTE# 0.9 X10e3 (1.0-3.5); LYMPHOCYTE% 7.2 % (17.0-45.0); MEAN CELL VOLUME 83.4 FL (83-96); MEAN CORPUSCULAR HEMOGLOBIN 26.5 PG (28-34); MEAN CORPUSCULAR HGB CONC 31.8 g/dL (30-36); MONOCYTE# 0.5 X10e3 (0-1.0); MONOCYTE% 4.5 % (3.0-12.0); NEUTROPHIL# 10.7 X10e3 (1.5-7.1); NEUTROPHIL% 87.7 % (40-75); PLATELET COUNT 205 X10e3 (140-420); RED BLOOD COUNT 4.27 X10e (3.90-5.60); RED CELL DISTRIBUTION WIDTH 16.1 % (11.0-15.5)
[2016-08-03 06:06] LABS: DIFF IND NO; WHITE BLOOD COUNT 12.2 X10e3 (4.0-10.5)
[2016-08-03 06:52] LABS: CALCIUM SERUM 8.1 mg/dL (8.4-10.2); CREATININE SERUM 1.9 mg/dL (0.6-1.4); GLOM FILT RATE Estimated 37.5 mL/min (>60); POTASSIUM 3.8 mmol/L (3.5-5.1)
[2016-08-04 05:57] LABS: HEMATOCRIT 32.6 % (38.0-50.0); HEMOGLOBIN 10.4 gm/dL (13.0-16.0); MEAN CELL VOLUME 82.7 FL (83-96); MEAN CORPUSCULAR HEMOGLOBIN 26.5 PG (28-34); MEAN PLATELET VOLUME 8.6 FL (6.5-11.5); RED BLOOD COUNT 3.94 X10e (3.90-5.60); RED CELL DISTRIBUTION WIDTH 16.8 % (11.0-15.5); WHITE BLOOD COUNT 12.1 X10e3 (4.0-10.5)
[2016-08-04 07:29] LABS: BUN/CREATININE RATIO 9.41; CALCIUM SERUM 8.1 mg/dL (8.4-10.2); CREATININE SERUM 1.7 mg/dL (0.6-1.4); GLOM FILT RATE Estimated 42.9 mL/min (>60); POTASSIUM 4.2 mmol/L (3.5-5.1)
[2016-08-05 06:06] LABS: HEMOGLOBIN 10.2 gm/dL (13.0-16.0); MEAN CELL VOLUME 83.9 FL (83-96); MEAN CORPUSCULAR HEMOGLOBIN 26.6 PG (28-34); MEAN CORPUSCULAR HGB CONC 31.7 g/dL (30-36); MEAN PLATELET VOLUME 8.9 FL (6.5-11.5); RED BLOOD COUNT 3.81 X10e (3.90-5.60); RED CELL DISTRIBUTION WIDTH 16.7 % (11.0-15.5); WHITE BLOOD COUNT 9.3 X10e3 (4.0-10.5)
[2016-08-05 06:58] LABS: BUN/CREATININE RATIO 9.28; CALCIUM SERUM 7.7 mg/dL (8.4-10.2); CREATININE SERUM 1.4 mg/dL (0.6-1.4); GLOM FILT RATE Estimated 54.2 mL/min (>60); POTASSIUM 4.3 mmol/L (3.5-5.1)
[2016-08-06 06:54] LABS: BUN/CREATININE RATIO 9.28; CALCIUM SERUM 8.4 mg/dL (8.4-10.2); CREATININE SERUM 1.4 mg/dL (0.6-1.4); GLOM FILT RATE Estimated 54.2 mL/min (>60); POTASSIUM 4.4 mmol/L (3.5-5.1)
== END 2016-08-07 15:09 | DRG 682 ==
LOC: CED 20:35 → CEDOF 21:30 → C3A PCU 08-03 00:32
PROVIDERS: Emergency Medicine; Internal Medicine
DX: N17.9 Acute kidney failure, unspecified (principal); G92 Toxic encephalopathy; E11.649 Type 2 diabetes mellitus with hypoglycemia without coma; I69.351 Hemiplegia and hemiparesis following cerebral infarction affecting right dominant side; N39.0 Urinary tract infection, site not specified; Z79.4 Long term (current) use of insulin; I10 Essential (primary) hypertension; I69.391 Dysphagia following cerebral infarction; R13.10 Dysphagia, unspecified; H54.42 Blindness, left eye, normal vision right eye; F01.50 Vascular dementia, unspecified severity, without behavioral disturbance, psychotic disturbance, mood disturbance, and anxiety; N40.0 Benign prostatic hyperplasia without lower urinary tract symptoms; E86.0 Dehydration; Z79.82 Long term (current) use of aspirin
CPT/HCPCS: 70450; 71010; 80048; 80076; 81003; 82140; 82947; 83605; 85025; 85027; 85610; 87086; 93005; 97110; 97116; 97162; 97167; 97530; 99291; G0480; G8978-GP; G8979-GP; G8980-GP; G8987-GO; G8988-GO; G8989-GO; J0696; J1650; J1815; J2405

== ENCOUNTER 2016-09-12 19:46 | Observation (INO) | payer OTHER ==
--- NOTE | ~2016-09-12 | DS ---
Unit #: [id number] #: [id number] Patient: PARMINDER MODI [id number] [address] [address] [id number] MR#: [id number] NAME: PARMINDER MODI ROOM: 235 Age: 81 Sex: M Admission Date: 09/13/2016 : 1935 Discharge Date: 09/13/2016 Attending Physician: Yovany Danielle M.D. Primary Care Physician: No Primary Care Physician DISCHARGE SUMMARY SHORT STAY SUMMARY REASON FOR ADMISSION Hyperglycemia at halfway. HISTORY OF PRESENT ILLNESS/HOSPITAL COURSE The patient is a very pleasant 81-year-old gentleman with a prior history of insulin dependent diabetes, glaucoma, legally blind in left eye, prior history of CVA, right sided hemiparesis, chronic dysphagia, hypertension, dementia likely multifactorial in origin, who was subsequently admitted after it was noted that blood sugars were elevated greater than 600. He was subsequently transferred to the ER for further evaluation. Through halfway course, he was given 28 units while he was there. While he was in the emergency room, appropriate laboratory studies were done. Blood sugar was noted to be 382, creatinine was noted to be 1.7. His baseline is somewhere between 1.5 to 1.7. He did have elevated lactic acid as well as positive urinalysis for glucose. Thus, he was admitted for the same. He was placed on Med/Surg floor. He underwent routine laboratory studies through hospital course. This morning, on his BMP, blood sugar is now noted to be 262, creatinine level 1.5. CBC shows a hemoglobin of 10.8, likely representing his baseline. His lactic acid level is now 1.7. At this point in time, the patient is medically stable to be transferred back to halfway for ongoing care. FINAL DISCHARGE DIAGNOSES 1. Hyperglycemia. 2. History of severe cerebrovascular accident. 3. Right hemiparesis. 4. Dementia, multifactorial in origin. 5. Dysphagia. 6. Blindness, left eye. 7. Hypertension. 8. Benign prostatic hypertrophy. 9. History of deep venous thrombosis in 2007. 10. Failure to thrive. FINAL DISCHARGE MEDICATIONS 1. Flomax 0.4 mg p.o. q. h.s. 2. Zoloft 50 mg p.o. daily. Unit #: [id number] #: [id number] Patient: PARMINDER MODI 3. Bowel regimen as per halfway. 4. Aricept 10 mg p.o. daily. 5. Hydralazine 25 mg p.o. b.i.d. 6. Lantus 10 units subcu b.i.d. 7. NovoLog low dose sliding scale insulin with Accu-Cheks q. a.c and q. h.s. 8. Aspirin 81 mg p.o. daily. DISCHARGE CONDITION Stable. DISCHARGE DISPOSITION To halfway for ongoing care. prison prognosis of this patient is guarded. Dictated by... Elias Lester/ar TD: 09/15/2016 06:52 JOB #: [id number] DISCHARGE SUMMARY Page 1 of 1 X Yovany Danielle MD X DISCHARGE SUMMARY
--- NOTE | ~2016-09-12 | CR72 ---
[facility] A Service of [facility] & [facility] RADIOLOGY TEXT RESULTS PATIENT: PARMINDER MODI LOCATION: [place] [address] : [birth year] UNIT #: [id number] AGE: [address]: Yovany Danielle MD SEX: M ORDER DR: [id number] [facility] [address] [facility]. [place], [place] [address] [id number] MR#: [id number] Acc #: [id number] NAME: PARMINDER MODI : 1935 SEX: M STUDY DATE/TIME: 09/12/2016 21:05 UNIT: TANNER ROOM: STUDY DESCRIPTION: CR Chest Single View Portable Attending Physician: Sully Thao M.D. Ordering Physician: Sully Thao M.D. Primary Care Physician: No Primary Care Physician MEDICAL IMAGING REPORT This report is preliminary unless electronic signature is present EXAM Portable chest HISTORY Mild congestion, altered mental status onset today. COMPARISON 08/02/2016 FINDINGS Portable view chest demonstrates cardiomegaly. Mild aortic atherosclerotic change. No infiltrates or effusions. Osseous structures unremarkable. No pneumothorax. Dictated by... Serge Mehta M.D. THIS IS AN ELECTRONICALLY VERIFIED REPORT Serge Mehta M.D. at 09/15/2016 6:07 AM Oliva TD: 09/13/2016 00:51 JOB #: [id number] MEDICAL IMAGING REPORT Page 1 of 1 COPY
--- NOTE | ~2016-09-12 | EKG ---
PATIENT: PARMINDER MODI UNIT #: [id number] Ventricular Rate: 55 BPM Atrial Rate: 55 BPM P-R Interval: 156 ms QRS Duration: 74 ms Q-T Interval: 426 ms QTC Calculation(Bezet): 407 ms P [place]: 35 degrees Calculated R [place]: -2 degrees Calculated T [place]: -21 degrees Diagnosis Line: Sinus bradycardia Diagnosis Line: Possible Inferior infarct , age undetermined Diagnosis Line: Abnormal ECG Diagnosis Line: When compared with ECG of 02-AUG-2016 19:50, Diagnosis Line: Borderline criteria for Inferior infarct are now Diagnosis Line: Present Diagnosis Line: QT has shortened Diagnosis Line: Confirmed by ELENA MOORE MD ([id number]) on Diagnosis Line: 09/13/2016 4:30:11 PM INTERPRETING MD: TERESA PAULINO
[~2016-09-12 19:46] MED LIST changes: +NOVOLOG100 UNITS/ SUBQ; +ZOLOFT50 MG PO
[2016-09-12 20:52] LABS: URINE APPEARANCE CLEAR; URINE BILIRUBIN NEG (NEG); URINE BLOOD NEG (NEG); URINE COLOR YELLOW; URINE GLUCOSE >1000 MG/DL (NEG); URINE KETONE NEG (NEG); URINE LEUKOCYTE ESTERASE NEG (NEG); URINE NITRATE NEG (NEG); URINE PH 5.5 (5-8); URINE PROTEIN 2+ (NEG); URINE SPECIFIC GRAVITY 1.027 (1.003-1.035)
[2016-09-12 20:55] LABS: CULTURE INDICATED? NO; URBCS1 AUWI 0-2 /[HPF] (0-2); URINE BACTERIA AUWI NEG (NEGATIVE); URINE SQUAMOUS EPITHELIAL CELL NONE SEEN /[HPF]; UWBCS1 AUWI 0-2 (0-5)
[2016-09-12 20:56] LABS: URINE SOURCE CATH
[2016-09-12 21:14] LABS: BASOPHIL# 0.1 X10e3 (0-0.3); BASOPHIL% 1.5 % (0-2.5); EOSINOPHIL# 0.2 X10e3 (0-0.7); EOSINOPHIL% 3.1 % (0.0-7.0); HEMATOCRIT 35.9 % (38.0-50.0); HEMOGLOBIN 11.5 gm/dL (13.0-16.0); LYMPHOCYTE# 1.6 X10e3 (1.0-3.5); LYMPHOCYTE% 25.6 % (17.0-45.0); MEAN CELL VOLUME 84.6 FL (83-96); MEAN CORPUSCULAR HEMOGLOBIN 27.2 PG (28-34); MEAN CORPUSCULAR HGB CONC 32.1 g/dL (30-36); MEAN PLATELET VOLUME 8.1 FL (6.5-11.5); MONOCYTE# 0.5 X10e3 (0-1.0); MONOCYTE% 7.4 % (3.0-12.0); NEUTROPHIL% 62.4 % (40-75); PLATELET COUNT 229 X10e3 (140-420); RED BLOOD COUNT 4.24 X10e (3.90-5.60); RED CELL DISTRIBUTION WIDTH 16.4 % (11.0-15.5); WHITE BLOOD COUNT 6.3 X10e3 (4.0-10.5)
[2016-09-12 21:15] LABS: DIFF IND NO
[2016-09-12 21:37] LABS: POC - TROPONIN <0.05 ng/mL (<=0.05)
[2016-09-12 21:52] LABS: ALBUMIN SERUM 3.9 g/dL (3.5-5.0); BETA HYDROXYBUTYRATE 0.19 MMOL/L (0.02-0.27); BILIRUBIN,TOTAL 0.5 mg/dL (0.2-2.0); BUN/CREATININE RATIO 18.23; CALCIUM SERUM 9.2 mg/dL (8.4-10.2); CREATININE SERUM 1.7 mg/dL (0.6-1.4); GLOM FILT RATE Estimated 42.9 mL/min (>60); POTASSIUM 3.9 mmol/L (3.5-5.1); PROTEIN TOTAL SERUM 8.2 g/dL (6.0-8.3)
[2016-09-12 21:55] LABS: BILIRUBIN, DIRECT 0.1 mg/dL (0.0-0.2); BILIRUBIN,INDIRECT 0.4 mg/dL (0.0-0.9)
[2016-09-13] MEDS ORDERED: HYDRALAZINE HCL25 MG PO (03:55)
[2016-09-13] MEDS ORDERED: GENTLE LAXATIVE5 M2 PO (03:55)
[2016-09-13] MEDS ORDERED: MILK OF MAGNESIA PO (03:56)
[2016-09-13] MEDS ORDERED: NOVOLOG100 U/ML SUBQ (03:56)
[2016-09-13] MEDS ORDERED: LANTUS100 U/ML SUBQ (03:56)
[2016-09-13 08:31] LABS: BASOPHIL# 0.1 X10e3 (0-0.3); BASOPHIL% 1.1 % (0-2.5); EOSINOPHIL# 0.2 X10e3 (0-0.7); EOSINOPHIL% 2.9 % (0.0-7.0); HEMATOCRIT 33.8 % (38.0-50.0); HEMOGLOBIN 10.8 gm/dL (13.0-16.0); LYMPHOCYTE# 2.3 X10e3 (1.0-3.5); LYMPHOCYTE% 28.4 % (17.0-45.0); MEAN CELL VOLUME 84.8 FL (83-96); MEAN CORPUSCULAR HGB CONC 31.9 g/dL (30-36); MEAN PLATELET VOLUME 8.3 FL (6.5-11.5); MONOCYTE# 0.6 X10e3 (0-1.0); NEUTROPHIL# 4.8 X10e3 (1.5-7.1); NEUTROPHIL% 59.6 % (40-75); PLATELET COUNT 208 X10e3 (140-420); RED BLOOD COUNT 3.99 X10e (3.90-5.60); RED CELL DISTRIBUTION WIDTH 16.3 % (11.0-15.5)
[2016-09-13 08:33] LABS: DIFF IND NO
[2016-09-13 09:00] LABS: BUN/CREATININE RATIO 14.66; CALCIUM SERUM 8.5 mg/dL (8.4-10.2); CREATININE SERUM 1.5 mg/dL (0.6-1.4); GLOM FILT RATE Estimated 49.9 mL/min (>60); POTASSIUM 4.1 mmol/L (3.5-5.1)
== END 2016-09-13 17:04 ==
LOC: CED 19:46 → CEDOF 09-13 02:00 → CED 09-13 02:23 → CEDOF 09-13 05:40 → C2A 09-13 09:49
PROVIDERS: Emergency Medicine; Internal Medicine
DX: E11.65 Type 2 diabetes mellitus with hyperglycemia (principal); Z79.4 Long term (current) use of insulin; I69.951 Hemiplegia and hemiparesis following unspecified cerebrovascular disease affecting right dominant side; F03.90 Unspecified dementia, unspecified severity, without behavioral disturbance, psychotic disturbance, mood disturbance, and anxiety; R13.10 Dysphagia, unspecified; H54.42 Blindness, left eye, normal vision right eye; I10 Essential (primary) hypertension; N40.0 Benign prostatic hyperplasia without lower urinary tract symptoms; Z86.718 Personal history of other venous thrombosis and embolism; Z79.82 Long term (current) use of aspirin; R62.7 Adult failure to thrive
CPT/HCPCS: 36415; 71010; 80048; 80076; 81003; 82010; 82553; 82947; 83605; 84484; 85025; 87040; 93005; 96361; 96365; 96367; 96368; 99285; G0378; J1815; J2543; J3260; J3370